=== PATIENT | male | born 1965 | race Two or more races ===

== ENCOUNTER → 2024-11-19 | Outpatient (CLI) | payer MEDICAID, SELFPAY ==
--- NOTE | 2024-11-19 11:30 | XR_ITS ---
Examination: CT right lower extremity, without contrast. 2-D sagittal reconstructions. 2-D coronal reconstructions. 3-D reconstructions. Date and time of exam:November 19, 2024 1139 hours INDICATIONS: Diagnosis unilateral primary osteoarthritis right knee, knee pain 2 years CTDI: vol (mGy):13.3 DLP: (mGycm):1065 Technique: Multiple 1.25 mm axial sections of the right lower extremity without intravenous contrast have been obtained. 2-D sagittal and coronal reconstructions have been obtained. 3-D reconstructions have been obtained. Low dose protocols were performed. One or more of the following dose reduction techniques were used; automated exposure control, adjustment of the mA and/or KV according to patient size, use of iterative reconstruction technique. Findings: Moderate osteopenia Mild to moderate narrowing right hip joint No right hip fracture or dislocation No avascular necrosis Advanced tricompartment osteoarthritis right knee Severe narrowing with subarticular sclerosis medial joint space right knee No fracture No patellar dislocation IMPRESSION: Advanced tricompartment osteoarthritis right knee
== END | disposition home or self-care (01) ==
LOC: CCTX 10:56
PROVIDERS: Referring Provider Orthopaedic Surgery Adult Reconstructive Orthopaedic Surgery; Visit Provider Orthopaedic Surgery Adult Reconstructive Orthopaedic Surgery
DX: M17.11 Unilateral primary osteoarthritis, right knee (principal)
CPT/HCPCS: 73700

== ENCOUNTER 2024-11-25 12:56 | Outpatient (AMB) | payer MEDICAID, SELFPAY ==
[2024-11-25 13:15] VITALS: BP 154/90; PULSE 98; RESP 18; TEMP 36.6; O2SAT 97; BMI 35.4
--- NOTE | 2024-11-25 13:15 | ORTHONT_ITS ---
Vital signs 11/25/24 13:15 Height 1.88 m Height Method Stated Weight 125.277 kg Weight Measurement Method Standing Scale BMI 35.4 BP 154/90 H Blood Pressure Source Automatic Cuff Blood Pressure Location Left Upper Arm Position Sitting Respiration 18 Pulse 98 Pulse Source Monitor Temp 97.8 F Temp Source Temporal Artery Scan Pulse Oximetry (%) 97 Oxygen Delivery Method Room Air Med/Allergies Allergies & Medications Allergies No Known Allergies Allergy (Verified 11/25/24 13:16) Medication Reconciliation Unobtainable 04/08/24 [History Confirmed 11/25/24] Exam Exam Patient is in no acute distress and is cooperative with the examination today. Breathing is nonlabored. Patient has a normal mood and affect. Bilateral extremities were evaluated and demonstrates sensation intact to light touch. Palpable pedal pulses are present. No significant edema is present. Bilateral hips were examined. The patient has no pain with log roll of the hips. Internal rotation to 30 degrees and external rotation to 30 degrees is painless. Negative FADIR. Left knee demonstrates a incision is clean dry intact. Range of motion 0 to 100 degrees The right knee was also examined. The right knee is in [varus] alignment. Range of motion from [0-115] degrees. Knee is stable to varus and valgus as well as AP translation with <5mm. Patient has a [negative] McMurrays. There is [no] pain with patellofemoral compression and [no] crepitus noted. The knee is [tender] to palpation [medially]. X-rays demonstrate medial joint space narrowing and complete obliteration of the medial joint space Assessment and Plan Problem List (1) Arthritis of knee, right: Status: Acute Plan: 58-year-old male with right knee pain and right knee arthritis. We discussed nonoperative and operative options. He has failled conservative management The nature and purpose of the total knee replacement, alternative method(s) of treatment, the material risks involved, and the possibility of complications were fully explained to the patient. The patient does NOT have any of the following contraindications to TKA: - Active infection of the knee joint, OR - Active systemic bacteremia, OR - Active skin infection or open wound at surgical site, OR - Neuropathic arthritis, OR - Severe, rapidly progressive neurological disease, OR - Severe medical condition that makes risks of surgery outweigh the potential benefit The patient was told the most common risks and complications associated with a total knee replacement include, but are not limited to: blood clots in the leg, fatal pulmonary embolism, dislocation of the prosthesis, intraoperative and postoperative fractures of the femur or tibia, infection, failure of the prosthesis or grafting materials, complications from anesthesia, reactions to blood transfusions, postoperative leg length inequality, instability of the knee replacement, nerve damage or injury, vascular injury, delayed wound healing, infection, other injury or even . In addition, there are risks associated with anesthesia given during this operation. Also, the patient was told that after undergoing a total knee replacement there may still be persistent pain or disability. The patient was informed that the success of this operation in part depends upon the mechanical devices which are going to be implanted and that these devices can fail or malfunction, and may need to be repaired or replaced and there are no guarantees as to the longevity of this device or its parts and that it or its parts could fail prematurely. The patient was also notified that during the course of surgery, there may be a need to use bone graft from donors, and that any bone graft used will be carefully screened for communicable diseases, including AIDS, hepatitis, Cong ob-Creutzfeldt, or other diseases, but despite the screening procedures, there is a small chance that they could contract one of these diseases. Finally, the patient was asked to follow completely and fully with all advice and recommended treatments, and that recovery and ultimate outcome are affected by their compliance with recommended treatment. We discussed the risks, benefits and treatment alternatives, and the patient is interested in proceeding with surgery. We will try to set this up as expeditiously as possible. (2) Pain in right knee: Status: Acute Office Procedures GNS Level of Care Nursing/Assessment Patient Status: Established Patient Nursing Assessment/Reassesment: Medication Reconciliation, Update PMH in EMR and Vital Signs Coordination of Care: Complex Care and Chronic Disease 1-5, Education Complex Pt/Fam, Consent,records obtained, informed consent and Staff clarify orders Special Needs: Language special needs Established Patient Charge Established Patient Point Assignment: 90 Established Patient Point Charge: EP Level 3 (80-115) MA Intake Visit Data Collection New Patient or Established: Established Patient (seen at [facility] [place] within 3 years) Reason for Visit:: PRE OP RIGHT TKA 12/03/2024 Seen by Clinical Staff ONLY (RN/MA): No Departmental Shipping Clerk Required: Yes PCP or OBGYN visit in last 3 months: Yes Hx Now: No Do You Feel Safe at Home: Yes Authorities Contacted: N/A Questionairres Past Medical History Past Medical History Have you ever been diagnosed with any of the following: Subjective Visit Visit for: follow up visit and knee Immunization / Flu Flu Vaccine in the Last 12 Months: No Flu Vaccine Exclusion Criteria: No Exclusion Criteria History of Present Illness Chief complaint: right knee pain atient is a 58-year-old male with 3 to 4 years of right knee pain. He has a history of a left knee replacement. He did well from the left side. He has tr ied anti-inflammatories and injections. The last injection only lasted 1/2 months. The pain is affecting his quality life and happiness. He has not had an injection for 10 months. The pain is affecting his quality life and happiness Pain Pain level (0-10): 10 Pain duration: CONSTANT Pain location: inside (medial), outside (lateral), anterior and posterior Pain quality: sharp and aching Pain timing: increases with activity and stairs Associated signs & symptoms: none Ambulatory data Ambulatory device: none Treatments Improvement with previous injections: No Improvement with PT: No Improvement with NSAIDS: no Review of Systems Review of Systems: All systems negative unless otherwise noted in HPI.
== END 2024-11-25 13:32 | disposition home or self-care (01) ==
LOC: HODSRG 12:56
PROVIDERS: PCP Family Medicine; Referring Provider Family Medicine; Supervising Provider Orthopaedic Surgery Adult Reconstructive Orthopaedic Surgery; Visit Provider Orthopaedic Surgery Adult Reconstructive Orthopaedic Surgery
DX: M17.11 Unilateral primary osteoarthritis, right knee (principal); M25.561 Pain in right knee
CPT/HCPCS: 99213; G0463

== ENCOUNTER 2024-12-03 08:10 | Day surgery (SDC) | payer MEDICAID, SELFPAY ==
[2024-12-02 09:19] VITALS: BMI 41.6
[2024-12-02 10:08] LABS: Basophils # (Auto) 0.1 Thou/mm3 (0.0-0.2); Basophils % (Auto) 1 % (0-2.5); Eosinophils # (Auto) 0.2 Thou/mm3 (0.0-0.5); Eosinophils % (Auto) 2 % (0-10); Hematocrit 51.7 % (41.0-53.0); Hemoglobin 18.7 g/dL (13.5-16.0); Immature Granulocytes % (Auto) 0 % (0-0); Immature Granulocytes Auto 0.04 Thou/mm3 (0.00-0.00); Lymphocytes # (Auto) 3.1 Thou/mm3 (1.0-4.8); Lymphocytes % (Auto) 31 % (10-50); Mean Corpuscular HGB Conc 36.2 g/dl (31.0-37.0); Mean Corpuscular Hemoglobin 32.3 pg (25.0-35.0); Mean Corpuscular Volume 89 fL (80-100); Monocytes # (Auto) 0.7 Thou/mm3 (0.0-0.8); Monocytes % (Auto) 7 % (0-12); Neutrophils # (Auto) 6.1 Thou/mm3 (1.8-7.7); Neutrophils % (Auto) 60 % (37-80); Nucleated Red Blood Cell % 0 /100 WBC (0); Platelet Count 291 Thou/mm3 (140-440); RDW Standard Deviation 42.7 fL (35.1-43.9); Red Blood Count 5.79 Miln/mm3 (4.50-5.90); White Blood Count 10.2 Thou/mm3 (3.8-10.6)
[2024-12-02 10:16] LABS: Partial Thromboplastin Time 28.8 Seconds (22.0-36.0); Prothrombin Time 10.9 Seconds (9.0-12.2)
[2024-12-02 10:19] LABS: Alanine Aminotransferase 47 U/L (10-49); Albumin, Serum 4.9 gm/dL (3.4-4.8); Albumin/Globulin Ratio 1.8 (1.2-2.2); Alkaline Phosphatase 228 U/L (46-116); Anion Gap 7 (7-16); Aspartate Amino Transferase 23 U/L (0-34); BUN/Creatinine Ratio 21 Ratio (12-20); Bilirubin,Total 0.7 mg/dL (0.3-1.2); Blood Urea Nitrogen 21 mg/dL (9-23); Calcium 9.8 mg/dL (8.3-10.6); Calcium (Corrected) 9.8 mg/dL (8.5-10.1); Carbon Dioxide 25.3 mMol/L (20.0-31.0); Chloride 107 mMol/L (98-107); Estimated Creatinine Clearance 99.6 mL/min (>60); Globulin 2.7 gm/dL (2.3-3.5); Glucose 129 mg/dL (74-106); Osmolality,Calculated 282 (275-295); Potassium 3.9 mMol/L (3.4-5.1); Sodium 139 mMol/L (136-145); Total Protein 7.6 gm/dL (5.7-8.2); eGFR > 60 See Note
[2024-12-03] VITALS (21 sets, daily range): BP systolic 131–164; BP diastolic 78–99; PULSE 78–115; RESP 14–24; TEMP 36.1–37; O2SAT 92–95; BMI 41.7
[2024-12-03] MEDS: PREGABALIN 75 MG CAPSULE PO (08:52)
[2024-12-03] MEDS: RINGERS LACTATED 1000 ML 1,000 ML 20 ML IV (08:52)
[2024-12-03] MEDS: MELOXICAM 7.5 MG TABLET PO (08:52)
[2024-12-03] MEDS: ACETAMINOPHEN 325 MG TABLET 650 MG PO (08:52)
--- NOTE | 2024-12-03 13:21 | ESOP_ITS ---
Date of Procedure 12/03/24 Pre Op Diagnosis right knee osteoarthritis Post Op Diagnosis right knee osteoarthritis Procedure right total knee replacement robotic assisted Findings full thickness cartilage loss and osteophytes Procedure Description Indication: The patient is a 59 year old who has a long history of right knee pain. X-rays show degenerative arthritis involving the knee. Over the past several years the patient has had increasing pain, progressive limitation in function. He has failed conservative measures including activity modification, physical therapy, injections, anti-inflammatories, and assistive devices. After a lengthy discussion of the risks and benefits, the patient presents now for total knee replacement. The nature and purpose of the total knee replacement, alternative method(s) of treatment, the material risks involved, and the possibility of complications were fully explained to the patient. The patient was told the most common risks and complications associated with a total knee replacement include, but are not limited to blood clots in the leg, fatal pulmonary embolism, dislocation of the prosthesis, intraoperative and postoperative fractures of the femur or tibia, infection, failure of the prosthesis or grafting materials, complications from anesthesia, reactions to blood transfusions, postoperative leg length inequality, instability of the knee replacement, nerve damage or injury, vascular injury, delayed wound healing, infections, other injury or even . In addition, there are risks associated with anesthesia given during this operation, temporary or permanent numbness on the skin lateral to the incision can be a complication unique to total knee surgery, and kneeling can be painful after knee replacement surgery. Also, the patient was told that after undergoing a total knee replacement there may still be pain or disability. We discussed with the patient that we will be using a robot-assisted technology. We discussed that there is a possibility of converting to manual instrumentation. The patient was informed that the success of this operation in part depends upon the mechanical devices which are going to be implanted and that these devices can fail or malfunction, and may need to be repaired or replaced and there are no guarantees as to the longevity of this device or its part and that it or its parts could fail prematurely. Finally, the patient was asked to follow completely and fully with all advice and recommended treatments, and that recovery and ultimate outcome are affected by their compliance with recommended treatment. Surgical technique: Patient was marked and consented in the pre-operative area. The patient was brought to the operating room and placed on the operating table in a supine position. Prior to positioning, a timeout procedure was performed between the surgeon, the anesthesiologist, and the nursing staff where the patient and the operative side were identified and confirmed. After adequate general anesthetic was obtained, the right lower extremity was prepped and draped in the usual sterile fashion. A weight based dose of Cefazolin were administered within 1 hour prior to incision. The robot was preregistered and calirated before the incision. The extremity was exsanguinated with an esmarch badge and tourniquet inflated to 250mmHg. A midline incision was made. A median parapatellar arthrotomy was made. The patella was subluxed laterally. A medial release was performed to expose the medial tibia. His femoral and tibial pins were placed through an intra incisional manner for both cases. Every effort was made to ensure that the distalmost aspect of the pin was hung in the second cortex. The arrays were then tightened several times to ensure that it was fixed for the remainder of the case. Both femoral and tibial checkpoints were then placed. We then went through the registration process of the bone. We then assessed the knee deformity and attempted to correct it. We also used the robot to aid in judging laxity in both extension and flexion. Final based on laxity and alignment we changed the preoperative assessment to obtain proper proper implant positioning and to correct deformity. Attention was then placed to the tibia. We made a tibial cut using the robot ensuring that both the MCL and the patella tendon were protected with retractors. We then went to the femur and made the posterior cut followed by the anterior cut and the anterior chamfer. The bone was then removed and we made a distal femur cut and a posterior chamfer cut. We verified all cuts. A trial reduction was performed with a size 6 femoral component and a size 6 keeled tibial component. The patella was cut and sized to a 39. The patella tracked centrally, and no lateral retinacular release was necessary. The trial implants were removed. The arrays, pins, and checkpoints were all removed. We performed a verification that all pins were removed. The cut bone surfaces were lavaged. A size 6 right femoral component, a size 6 keeled tibial component, and a size 39 patella were impacted into position. The knee was felt to be well balanced in the sagittal and coronal plane. The final 6x10 mm cruciate-substituting articular insert was impacted into the tibial tray. The knee was brought out to full extension, flexed up to 120 degrees. It was stable to varus and valgus stress and appropriately balanced in flexion and extension. The wounds were copiously irrigated following deflation of tourniquet. The m edial retinaculum was reapproximated with #1 vicryl and quill. The subcutaneous tissues were closed with 0 and 2-0 interrupted Vicryl. The skin was closed with 3-0 Monofilament V loc suture. A sterile dressing was applied. The patient was transferred to a bed and brought to recovery in stable condition. The patient tolerated the procedure well. There were no intraoperative complications. Sponge and needle counts were correct times 2. As the attending surgeon, I attest I was present and performed the entire operation. Grafts/Implants Size 6 CR Femur Size 6 Tibia 20mm poly CS 39mm patella Anesthesia GETA Implants taryn Pathology / specimen None Pathology comment: none Estimated Blood Loss 150 Condition Stable Disposition PACU Surgeon Christiano Choi MD Surgical Staff Operation Date: 12/03/24 11:45 Case Staff Anesthesiologist: Dinesh Hdz RN First Assistant: Gladys López
--- NOTE | 2024-12-03 13:24 | XR_ITS ---
Examination: Right knee 2 views Technique one AP lateral right knee 2 views Exam date and time: December 03, 2024 1414 hours INDICATIONS: Postop knee replacement. FINDINGS: Total right knee arthroplasty. Satisfactory alignment Moderate osteopenia No fracture IMPRESSION: Total right knee arthroplasty with satisfactory alignment
--- NOTE | 2024-12-03 13:46 | SUR.PHASEI ---
1346: Pt. AAOx4, vitals stable, breathing unlabored, no complaint of pain or nausea, dressing to right knee CDI, no active bleed noted, bilateral dorsalis pedis pulses strong and regular, cap refill to bilateral feet less than 3 seconds, pt. able to wiggle bilateral legs, report received from Abel WORLEY and MD Hdz.
--- NOTE | 2024-12-03 16:29 | SUR.PHASEII ---
unable to update pt. point of contact name and phone number. Keegan (friend) [phone]
--- NOTE | 2024-12-03 16:30 | SUR.PHASEII ---
1630: Discharge instructions given using preschool aidept. almaraz signed belongings paper and discharge paper. Elida WORLEY made aware.
--- NOTE | 2024-12-03 16:30 | SUR.PHASEI ---
xr completed, physical therapy, pt. tolerated well. Pt. however unable to urinate. Pt. needs to urinate to be discharged. Pt. ride needs to be home by 1800. Per MD Choi if pt. unable to void by 1640, plan to keep pt. overnight for observation.
--- NOTE | 2024-12-03 16:33 | SUR.PHASEI ---
report given to Elida WORLEY to resume care of pt. Updated nurse on pt. situation, Elida WORLEY verbalized understanding. Pt. AAOx4, vitals stable, breathing unlabored, no complaint of pain or nausea, dressing to right knee CDI, no active bleed noted.
--- NOTE | 2024-12-03 19:11 | SUR.PHASEII ---
1635 patient is awake, alert, breathing unlabored, s/p right total knee arthroplasty by Dr. Choi. Dressing clean, dry and intact with no active bleeding, patient able to wiggle toes to right foot with good circulation. Report received from Xochitl WORLEY, patient has been trying to void with no urine output, Dr Choi is aware and said if unable to void patient needs to stay for observation since patient received spinal anesthesia per RN Report. Discharge instructions have been given to patient and friend Keegan, waiting for patient to void. 1643 Patient unable to void, Dr. Choi admit patient for observation, sung Allison left home since he is from [place] and needs to go home soon. 1754 Patient voided 125ml 1805 Dr. Choi made aware patient voided, ok to discharge patient home patient called friend Vick from [facility] to hop picker patient, waiting for ride to hop picker patient. 1916 Sean Hickman arrived, will give discharge instructions and get patient ready to go home
[2024-12-03] MEDS: ACETAMINOPHEN 500 MG TABLET 1000 MG PO (19:26)
[2024-12-03] MEDS: oxyCODONE HCL 5 MG IR TAB PO (19:28)
--- NOTE | 2024-12-03 19:55 | SUR.PHASEII ---
Addendum entered by Elida Lawson RN 12/03/24 21:43: discharge instructions reinforced with animal husbandry worker since different friend taking patient home Original Note: 1944 patient is awake, alert, breathing unlabored, dressing dry with no bleeding. patient able to void 400ml in urinal and ambulate to bathroom with walker and have unmeasured void x1. Patient does not know if pharmacy will be open to filler picker prescription, oxycodone and tylenol PO x1 dose given prior to discharge home. pt educated to filler picker prescription tonight if possible if not early tomorrow morning. patient and friend david verbalize understanding of discharge instructions and picking up medications from pharmacy. patient discharged home in wheelchair with all belongings.
== END 2024-12-03 19:45 | disposition home or self-care (01) ==
PROVIDERS: Anesthesiology; PCP Family Medicine; Referring Provider Orthopaedic Surgery Adult Reconstructive Orthopaedic Surgery; Visit Provider Orthopaedic Surgery Adult Reconstructive Orthopaedic Surgery
PROC: (CPT 27447; principal; 2024-12-03 11:30)
DX: M17.11 Unilateral primary osteoarthritis, right knee (principal); M25.761 Osteophyte, right knee
CPT/HCPCS: 27447; 20985; 36415; 73560; 80053; 85025; 85610; 85730; 97162; A4217; C1713; C1776; J0690; J1100; J1885; J2250; J2405; J2704; J2795; J3010; J3490; J7030; J7120; J7999; A4648; A4649; A9270

== ENCOUNTER 2024-12-19 13:28 | Outpatient (AMB) | payer MEDICAID, SELFPAY ==
--- NOTE | 2024-12-19 13:38 | PD.ORTHCLVIS ---
Vital signs 12/19/24 13:39 Height 1.73 m Height Method Stated Weight 121.733 kg Weight Measurement Method Standing Scale BMI 40.6 BP 110/70 Blood Pressure Source Automatic Cuff Blood Pressure Location Left Upper Arm Position Sitting Respiration 18 Pulse 108 H Pulse Source Monitor Temp 97.3 F Temp Source Temporal Artery Scan Pulse Oximetry (%) 98 Oxygen Delivery Method Room Air Med/Allergies Allergies & Medications Allergies No Known Allergies Allergy (Verified 12/19/24 13:40) Medication Reconciliation atorvastatin 40 mg tablet 40 mg PO QDAY 12/02/24 [History Confirmed 12/19/24] gabapentin 100 mg capsule 100 mg PO QDAY 12/02/24 [History Confirmed 12/19/24] lisinopril 40 mg tablet 40 mg PO QDAY 12/02/24 [History Confirmed 12/19/24] naproxen 500 mg tablet 500 mg PO BID 12/02/24 [History Confirmed 12/19/24] acetaminophen 500 mg tablet (Acetaminophen Extra Strength) 1,000 mg (2 x 500 mg) PO Q6H PRN pain #90 tabs 12/03/24 [Rx Confirmed 12/19/24] aspirin 81 mg tablet,delayed release 81 mg PO BID #60 tabs 12/03/24 [Rx Confirmed 12/19/24] doxycycline hyclate 100 mg tablet 100 mg PO BID #14 tabs 12/03/24 [Rx Confirmed 12/19/24] gabapentin 300 mg capsule 300 mg PO .qhs #30 caps 12/03/24 [Rx Confirmed 12/19/24] oxycodone 5 mg tablet 5 mg PO Q6H PRN pain #28 tabs 12/03/24 [Rx Confirmed 12/19/24] sennosides 8.6 mg-docusate sodium 50 mg tablet (Senna-S) 1 tab-cap PO QDAY #30 tabs 12/03/24 [Rx Confirmed 12/19/24] Exam Exam Patient is in no acute distress and is cooperative with the examination today. Breathing is nonlabored. Patient has a normal mood and affect. Bilateral extremities were evaluated and demonstrates sensation intact to light touch. Palpable pedal pulses are present. No significant edema is present. Bilateral hips were examined. The patient has no pain with log roll of the hips. Internal rotation to 30 degrees and external rotation to 30 degrees is painless. Negative FADIR. Left knee demonstrates a incision is clean dry intact. Range of motion 0 to 100 degrees The right knee was also examined. The right knee is in [varus] alignment. Range of motion from [0-115] degrees. Knee is stable to varus and valgus as well as AP translation with <5mm. Patient has a [negative] McMurrays. There is [no] pain with patellofemoral compression and [no] crepitus noted. The knee is [tender] to palpation [medially]. Right knee x-rays demonstrate a total knee replacement in Good position and alignment Assessment and Plan Problem List (1) Arthritis of knee, right: Status: Acute Plan: 58-year-old male with right knee pain and right knee arthritis. He is doing well status post total knee replacement. We will get him set up and in 5 weeks for new x-rays and routine follow-up. (2) Pain in right knee: Status: Acute Office Procedures GNS Level of Care Nursing/Assessment Patient Status: Established Patient Nursing Assessment/Reassesment: Medication Reconciliation, Update PMH in EMR and Vital Signs Coordination of Care: Complex Care and Chronic Disease 1-5, Education Complex Pt/Fam, Consent,records obtained, informed consent, Results/Orders obtained and Staff clarify orders Special Needs: Language special needs Established Patient Charge Established Patient Point Assignment: 95 Established Patient Point Charge: EP Level 3 (80-115) MA Intake Visit Data Collection New Patient or Established: Established Patient (seen at [facility] within 3 years) Reason for Visit:: 2 WEEK F/U R TKA Seen by Clinical Staff ONLY (RN/MA): No Parole Board Member Required: Yes PCP or OBGYN visit in last 3 months: Yes Hx Now: No Do You Feel Safe at Home: Yes Authorities Contacted: N/A Questionairres Past Medical History Past Medical History Have you ever been diagnosed with any of the following: Neurological Problems Seizures: No Cardiology Problems Hypercholesterolemia: Yes Congestive Heart Failure: No Hypertension: Yes Varicose Veins: Yes Respiratory Problems Chronic Obstructive Pulmonary Disease (COPD): No Smoking: No Smoking Cessation Counseling: No Smoking Exposure: No Stomache/Intestinal Problems Hepatitis: No Obesity: Yes Genital/Urinary Problems Renal Disease: No Kidney Stones: Yes Musculoskeletal Problems Arthritis: Yes Endocrine Problems Diabetes Mellitus Type 1: No Diabetes Mellitus Type 2: No Other Problems Hospitalization: No Shingles: No Blood Transfusions: No Blood Transfusion Reaction: No Anesthesia Reactions: No Cancer: No Subjective Visit Visit for: follow up visit and knee (TKA) Immunization / Flu Flu Vaccine in the Last 12 Months: No Flu Vaccine Exclusion Criteria: No Exclusion Criteria History of Present Illness Chief complaint: right knee pain lisa is a 58-year-old male with 3 to 4 years of right knee pain. He has a history of a left knee replacement. He did well from the left side. His right total knee replacement is feeling great. He is walking with a walker. Needs to start physical therapy Pain Pain level (0-10): 8 Pain duration: CONSTANT Pain location: inside (medial), outside (lateral), anterior and posterior Pain quality: sharp and aching Pain timing: increases with activity and stairs Associated signs & symptoms: none Ambulatory data Ambulatory device: walker and none Treatments Improvement with previous injections: No Improvement with PT: No Improvement with NSAIDS: no Review of Systems Review of Systems: All systems negative unless otherwise noted in HPI.
[2024-12-19 13:39] VITALS: BP 110/70; PULSE 108; RESP 18; TEMP 36.3; O2SAT 98; BMI 40.6
== END 2024-12-19 14:09 | disposition home or self-care (01) ==
LOC: HODSRG 13:28
PROVIDERS: Supervising Provider Orthopaedic Surgery Adult Reconstructive Orthopaedic Surgery; Visit Provider Orthopaedic Surgery Adult Reconstructive Orthopaedic Surgery
DX: M17.11 Unilateral primary osteoarthritis, right knee (principal); Z96.653 Presence of artificial knee joint, bilateral
CPT/HCPCS: 99213; G0463

== ENCOUNTER 2025-03-27 14:06 | Outpatient (AMB) | payer MEDICAID, SELFPAY ==
[2025-03-27 14:40] VITALS: BP 149/78; PULSE 79; RESP 19; TEMP 37.1; O2SAT 97; BMI 40.6
--- NOTE | 2025-03-27 14:40 | ORTHONT_ITS ---
Vital signs 03/27/25 14:40 Height 1.73 m Height Method Stated Weight 121.705 kg Weight Measurement Method Standing Scale BMI 40.6 BP 149/78 H Blood Pressure Source Automatic Cuff Blood Pressure Location Left Upper Arm Position Sitting Respiration 19 Pulse 79 Pulse Source Monitor Temp 98.7 F Temp Source Temporal Artery Scan Pulse Oximetry (%) 97 Oxygen Delivery Method Room Air Med/Allergies Allergies & Medications Allergies No Known Allergies Allergy (Verified 03/27/25 14:45) Medication Reconciliation atorvastatin 40 mg tablet 40 mg PO QDAY 12/02/24 [History Confirmed 03/27/25] gabapentin 100 mg capsule 100 mg PO QDAY 12/02/24 [History Confirmed 03/27/25] lisinopril 40 mg tablet 40 mg PO QDAY 12/02/24 [History Confirmed 03/27/25] naproxen 500 mg tablet 500 mg PO BID 12/02/24 [History Confirmed 03/27/25] acetaminophen 500 mg tablet (Acetaminophen Extra Strength) 1,000 mg (2 x 500 mg) PO Q6H PRN pain #90 tabs 12/03/24 [Rx Confirmed 03/27/25] aspirin 81 mg tablet,delayed release 81 mg PO BID #60 tabs 12/03/24 [Rx Confirmed 03/27/25] doxycycline hyclate 100 mg tablet 100 mg PO BID #14 tabs 12/03/24 [Rx Confirmed 03/27/25] gabapentin 300 mg capsule 300 mg PO .qhs #30 caps 12/03/24 [Rx Confirmed 03/27/25] oxycodone 5 mg tablet 5 mg PO Q6H PRN pain #28 tabs 12/03/24 [Rx Confirmed 03/27/25] sennosides 8.6 mg-docusate sodium 50 mg tablet (Senna-S) 1 tab-cap PO QDAY #30 tabs 12/03/24 [Rx Confirmed 03/27/25] Exam Exam Patient is in no acute distress and is cooperative with the examination today. Breathing is nonlabored. Patient has a normal mood and affect. Bilateral extremities were evaluated and demonstrates sensation intact to light touch. Palpable pedal pulses are present. No significant edema is present. Bilateral hips were examined. The patient has no pain with log roll of the hips. Internal rotation to 30 degrees and external rotation to 30 degrees is painless. Negative FADIR. Left knee demonstrates a incision is clean dry intact. Range of motion 0 to 100 degrees The right knee was also examined. The right knee is in [varus] alignment. Range of motion from [0-115] degrees. Knee is stable to varus and valgus as well as AP translation with <5mm. Patient has a [negative] McMurrays. There is [no] pain with patellofemoral compression and [no] crepitus noted. The knee is [tender] to palpation [medially]. Right knee x-rays demonstrate a total knee replacement in Good position and alignment Assessment and Plan Problem List (1) Arthritis of knee, right: Status: Acute Plan: 58-year-old male with right knee pain and right knee arthritis. He is doing well status post total knee replacement. He will need new x-rays but is doing well. He using no assist device and is back to work. He is happy (2) Pain in right knee: Status: Acute Office Procedures GNS Level of Care Nursing/Assessment Patient Status: Established Patient Nursing Assessment/Reassesment: Medication Reconciliation, Update PMH in EMR and Vital Signs Coordination of Care: Complex Care and Chronic Disease 1-5, Education Complex Pt/Fam, Consent,records obtained, informed consent, Results/Orders obtained and Staff clarify orders Special Needs: Language special needs Established Patient Charge Established Patient Point Assignment: 95 Established Patient Point Charge: EP Level 3 (80-115) MA Intake Visit Data Collection New Patient or Established: Established Patient (seen at [facility] within 3 years) Reason for Visit:: 6 WEEK POST OP Seen by Clinical Staff ONLY (RN/MA): No Verbal consent obtained for 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 PCP or OBGYN visit in last 3 months: Yes Hx Now: No Do You Feel Safe at Home: Yes Authorities Contacted: N/A Questionairres Past Medical History Past Medical History Have you ever been diagnosed with any of the following: Neurological Problems Seizures: No Cardiology Problems Hypercholesterolemia: Yes Congestive Heart Failure: No Hypertension: Yes Varicose Veins: Yes Respiratory Problems Chronic Obstructive Pulmonary Disease (COPD): No Smoking: No Smoking Cessation Counseling: No Smoking Exposure: No Stomache/Intestinal Problems Hepatitis: No Obesity: Yes Genital/Urinary Problems Renal Disease: No Kidney Stones: Yes Musculoskeletal Problems Arthritis: Yes Endocrine Problems Diabetes Mellitus Type 1: No Diabetes Mellitus Type 2: No Other Problems Hospitalization: No Shingles: No Blood Transfusions: No Blood Transfusion Reaction: No Anesthesia Reactions: No Cancer: No Subjective Visit Visit for: follow up visit and knee Immunization / Flu Flu Vaccine in the Last 12 Months: No Flu Vaccine Exclusion Criteria: No Exclusion Criteria History of Present Illness Chief complaint: 6 WK POST OP TKA lisa is a 58-year-old male with 3 to 4 years of right knee pain. He has a history of a left knee replacement. He did well from the right side. He is back to physical Personal History Red flag PMH: BMI BMI Counceling provided: Yes Pain Pain level (0-10): 3 Pain duration: COMES AND GOES Pain location: anterior Pain quality: tingling Pain timing: night (HEEL PAIN) and increases with activity Associated signs & symptoms: numbness Ambulatory data Ambulatory device: none Treatments Improvement with previous injections: No Improvement with PT: No Improvement with NSAIDS: no Review of Systems Review of Systems: All systems negative unless otherwise noted in HPI.
--- NOTE | 2025-03-27 14:51 | XR_ITS ---
Examination: Bilateral knees 2 views Right ovary left thyroid 2 views Bilateral axial knees single view TECHNIQUE: Bilateral AP knees standing single view, bilateral PA knees standing single view flexion Standing right lateral knee left lateral knee 2 views Bilateral axial knees single view Date and time: March 27, 2025 1549 hours INDICATIONS: Knee pain years. FINDINGS: Moderate osteopenia Bilateral total knee arthroplasties. Satisfactory alignment No loosening of the prosthetic devices No fractures No patellar dislocation IMPRESSION: Bilateral total knee arthroplasties with satisfactory alignment
== END 2025-03-27 14:54 | disposition home or self-care (01) ==
LOC: HODSRG 14:06
PROVIDERS: Supervising Provider Orthopaedic Surgery Adult Reconstructive Orthopaedic Surgery; Visit Provider Orthopaedic Surgery Adult Reconstructive Orthopaedic Surgery
DX: M17.11 Unilateral primary osteoarthritis, right knee (principal); M25.561 Pain in right knee; Z96.659 Presence of unspecified artificial knee joint
CPT/HCPCS: 73564; 99213; G0463

== ENCOUNTER 2025-07-16 12:50 | Outpatient (AMB) | payer MEDICAID, SELFPAY ==
--- NOTE | 2025-07-16 13:06 | ORTHONT_ITS ---
Vital signs 07/16/25 13:10 Height 1.73 m Height Method Measured Weight 122.612 kg Weight Measurement Method Standing Scale BMI 40.9 BP 129/70 Blood Pressure Source Automatic Cuff Blood Pressure Location Left Upper Arm Position Sitting Respiration 18 Pulse 78 Pulse Source Monitor Temp 98.2 F Temp Source Temporal Artery Scan Pulse Oximetry (%) 94 L Oxygen Delivery Method Room Air Med/Allergies Allergies & Medications Allergies No Known Allergies Allergy (Verified 07/16/25 13:14) Medication Reconciliation atorvastatin 40 mg tablet 40 mg PO QDAY 12/02/24 [History Confirmed 07/16/25] gabapentin 100 mg capsule 100 mg PO QDAY 12/02/24 [History Confirmed 07/16/25] lisinopril 40 mg tablet 40 mg PO QDAY 12/02/24 [History Confirmed 07/16/25] naproxen 500 mg tablet 500 mg PO BID 12/02/24 [History Confirmed 07/16/25] acetaminophen 500 mg tablet (Acetaminophen Extra Strength) 1,000 mg (2 x 500 mg) PO Q6H PRN pain #90 tabs 12/03/24 [Rx Confirmed 07/16/25] aspirin 81 mg tablet,delayed release 81 mg PO BID #60 tabs 12/03/24 [Rx Confirmed 07/16/25] doxycycline hyclate 100 mg tablet 100 mg PO BID #14 tabs 12/03/24 [Rx Confirmed 07/16/25] gabapentin 300 mg capsule 300 mg PO .qhs #30 caps 12/03/24 [Rx Confirmed 07/16/25] oxycodone 5 mg tablet 5 mg PO Q6H PRN pain #28 tabs 12/03/24 [Rx Confirmed 07/16/25] sennosides 8.6 mg-docusate sodium 50 mg tablet (Senna-S) 1 tab-cap PO QDAY #30 tabs 12/03/24 [Rx Confirmed 07/16/25] Exam Exam Patient is in no acute distress and is cooperative with the examination today. Breathing is nonlabored. Patient has a normal mood and affect. Bilateral extremities were evaluated and demonstrates sensation intact to light touch. Palpable pedal pulses are present. No significant edema is present. Bilateral hips were examined. The patient has no pain with log roll of the hips. Internal rotation to 30 degrees and external rotation to 30 degrees is painless. Negative FADIR. Left knee demonstrates a incision is clean dry intact. Range of motion 0 to 100 degrees The right knee was also examined. The right knee is in [varus] alignment. Range of motion from [0-115] degrees. Knee is stable to varus and valgus as well as AP translation with <5mm. Patient has a [negative] McMurrays. There is [no] pain with patellofemoral compression and [no] crepitus noted. The knee is [tender] to palpation [medially]. RESULTS Imaging - X-ray of bilateral knees: 03/27/2025, Cementless right total knee replacement in normal alignment and position Assessment and Plan Problem List (1) Arthritis of knee, right: Status: Acute Plan: 58-year-old male with right knee pain and right knee arthritis. He is doing well status post total knee replacement. He will need new x-rays but is doing well. He using no assist device and is back to work. He is happy (2) Pain in right knee: Status: Acute Plan: 1. Post-operative status following right total knee replacement: Recovery is progressing as expected, with no complications reported. The knee should continue to improve over the next year. Full motion is noted in both knees, and the patient is experiencing normal post-operative sensations. A follow-up appointment is not necessary for another year unless new issues arise. 2. Suspected sciatica or lumbar stenosis: Reports pain radiating from the hip down to the feet, suggestive of sciatica or lumbar stenosis. Advised to consult a specialist for further evaluation and management of back pain. Referral to a back specialist is recommended to address these symptoms and determine an appropriate treatment plan. Follow-up: The patient will follow up in 1 year. Office Procedures GNS Level of Care Nursing/Assessment Patient Status: Established Patient Nursing Assessment/Reassesment: Medication Reconciliation, Update PMH in EMR and Vital Signs Coordination of Care: Complex Care and Chronic Disease 1-5, Education Complex Pt/Fam, Consent,records obtained, informed consent, Results/Orders obtained and Staff clarify orders Special Needs: Language special needs Established Patient Charge Established Patient Point Assignment: 95 MA Intake Visit Data Collection New Patient or Established: Established Patient (seen at [facility] within 3 years) Reason for Visit:: XRAY RESULTS Seen by Clinical Staff ONLY (RN/MA): No Verbal consent obtained for Telemed visit?: No Inpatient Nursing Aide Required: Yes PCP or OBGYN visit in last 3 months: Yes Hx Now: No Do You Feel Safe at Home: Yes Authorities Contacted: N/A Questionairres Past Medical History Past Medical History Have you ever been diagnosed with any of the following: Neurological Problems Seizures: No Cardiology Problems Hypercholesterolemia: Yes Congestive Heart Failure: No Hypertension: Yes Varicose Veins: Yes Respiratory Problems Chronic Obstructive Pulmonary Disease (COPD): No Smoking: No Smoking Cessation Counseling: No Smoking Exposure: No Stomache/Intestinal Problems Hepatitis: No Obesity: Yes Genital/Urinary Problems Renal Disease: No Kidney Stones: Yes Musculoskeletal Problems Arthritis: Yes Endocrine Problems Diabetes Mellitus Type 1: No Diabetes Mellitus Type 2: No Other Problems Hospitalization: No Shingles: No Blood Transfusions: No Blood Transfusion Reaction: No Anesthesia Reactions: No Cancer: No Subjective Visit Visit for: follow up visit and knee Immunization / Flu Flu Vaccine in the Last 12 Months: No Flu Vaccine Exclusion Criteria: No Exclusion Criteria History of Present Illness Chief complaint: XRAY RESULTS HISTORY OF PRESENT ILLNESS IChristiano, have obtained verbal consent from the patient, to be recorded during this encounter which may include, but not limited to, medical history, examination, treatment plans, and relevant health information.? Patient was informed that recording will be read and reviewed by myself before inclusion in the medical chart. The patient is a 60-year-old male who is status post right total knee replacement 7 months ago. He reports that his knees are functioning well, with full range of motion in both knees. However, he experiences pain originating from his hip and extending down to his feet. Personal History Red flag PMH: BMI BMI Counceling provided: Yes Pain Pain level (0-10): 0 Pain duration: COMES AND GOES Pain location: anterior Pain quality: tingling Pain timing: night (HEEL PAIN) and increases with activity Associated signs & symptoms: numbness Ambulatory data Ambulatory device: none Treatments Improvement with previous injections: No Improvement with PT: No Improvement with NSAIDS: no Review of Systems Review of Systems: All systems negative unless otherwise noted in HPI.
[2025-07-16 13:10] VITALS: BP 129/70; PULSE 78; RESP 18; TEMP 36.8; O2SAT 94; BMI 40.9
== END 2025-07-16 13:16 | disposition home or self-care (01) ==
LOC: HODSRG 12:50
PROVIDERS: Supervising Provider Orthopaedic Surgery Adult Reconstructive Orthopaedic Surgery; Visit Provider Orthopaedic Surgery Adult Reconstructive Orthopaedic Surgery
DX: Z47.1 Aftercare following joint replacement surgery (principal); Z96.651 Presence of right artificial knee joint; M25.561 Pain in right knee
CPT/HCPCS: 99213; G0463